=== PATIENT | female | born 1930 | race Caucasian/White ===

== ENCOUNTER 2016-11-21 08:03 | Emergency (ER) | payer BC ==
[~2016-11-21] VITALS: Ht 161.3 cm; Wt 70.8 kg
[~2016-11-21 08:03] MED LIST: CALC-51 PO; CHOL1CAP57 PO; MULT-730 PO
[2016-11-21 08:08] VITALS: TEMP 36.3; Ht 161.3 cm; Wt 70.8 kg
--- NOTE | 2016-11-21 08:37 | EMERGENCY ROOM VISIT NOTE ---
History Report prepared by Fabricio: Jesus Sosa Under the Supervision of: Dr. Yahaira Peter M.D. First contact with patient: 08:24 Chief Complaint: NECK PAIN Stated Complaint: BASE OF SKULL, DOWN NECK AND INTO SHOULDER History of Present Illness The patient is an 86 year old female who presents to the Emergency Room with complaints of persistent left-sided facial pain that started at midnight. The patient was feeling fine yesterday and woke up with the pain. The pain radiates down her neck and is worse when she rotates her head. She tried using Bengay and taking Tylenol. The patient was eventually able to fall back asleep but the pain persisted this morning. The pain is rated 10/10 in severity. She denies any history of diabetes. The patient lives alone. Source of History: patient Onset: midnight Position: other (left face) Symptom Intensity: 10/10 Timing: other (persistent) Modifying Factors (Worsening): movement Review of Systems See HPI for pertinent positives & negatives. A total of 10 systems reviewed and were otherwise negative. Past Medical & Surgical Medical Problems: (1) Breast nodule (2) Cataract Family History No pertinent family history Social History Smoking Status: Never Smoker Drug Use: none Occupation Status: retired Current/Historical Medications Scheduled Calcium Carbonate-Vitamin D (Calcium), 1 TAB PO DAILY Calcium Carbonate-Vitamin D (Calcium), 1 TAB PO 2XWK Cholecalciferol (Vitamin D3), 1,000 MG PO DAILY Multiple Vitamins W/ Minerals (Alive Womens 50+), 1 TAB PO DAILY Scheduled PRN Metaxalone (Skelaxin), 1 TAB PO TID PRN for spasms Tramadol (Ultram), 1 TABS PO Q6 PRN for Pain Allergies Coded Allergies: Penicillins (Verified Allergy, Mild, RASH, 11/21/16) Aspirin (Verified Allergy, Unknown, ., 11/21/16) Physical Exam Vital Signs Date Time Temp Pulse Resp B/P Pulse Ox O2 Delivery O2 Flow Rate FiO2 11/21/16 10:04 81 16 183/82 98 11/21/16 08:08 36.3 81 18 163/85 97 Room Air Physical Exam Vital signs reviewed. General: Well-appearing female, in no significant distress. HEENT: No scleral icterus, PERRLA, neck supple. Atraumatic. Cardiovascular: Regular rate and rhythm, no extra sounds. Pulmonary: Clear to auscultation bilaterally, normal work of breathing. Abdomen: Soft, nontender, nondistended, positive bowel sounds. Musculoskeletal: Atraumatic, no peripheral edema. Tenderness along the left cervical paraspinous muscles with palpable spasm, limited range of motion secondary to discomfort. No meningeal signs. Neurologic: Patient awake alert and oriented x 3, full strength in all 4 extremities. Cranial nerves 2 through 12 grossly intact. Ambulatory without difficulty. Skin: Warm, dry, no rash Medical Decision & Procedures ER Provider Diagnostic Interpretation: X-ray results as stated below per interpretation by me and the radiologist: C-SPINE ROUTINE 4 OR 5 VIEWS CLINICAL HISTORY: Neck pain COMPARISON STUDY: MRI dated 06/01/2010 FINDINGS: There are moderate multilevel degenerative changes with multilevel disc space narrowing. There is multilevel uncovertebral joint spurring with mild multilevel foraminal encroachment. No acute fractures or traumatic subluxations are visualized. The prevertebral soft tissues appear normal. IMPRESSION: Moderate multilevel degenerative change. No fractures, subluxations, or destructive lesions are visualized Electronically signed by: Delfin Jeffrey M.D. 11/21/2016 9:22 AM Dictated Date/Time: 11/21/2016 9:21 AM Medications Administered Medications (Trade) Dose Ordered Sig/Snow Route Start Time Stop Time Status Last Admin Dose Admin Prednisone (PredniSONE TAB) 40 mg NOW STAT PO 11/21/16 08:31 11/21/16 08:37 DC 11/21/16 09:51 40 MG ECG Indication: other Rate (beats per minute): 7272 Rhythm: normal sinus Findings: no acute ischemic change, left axis deviation, no ectopy, other ( left atrial enlargement) ED Course 0830: Past medical records reviewed. The patient was evaluated in room B4b. A complete history and physical examination was performed. 0831: Prednisone 40 mg PO. 1030: Reassessed the patient. Discussed the findings with her. She verbalized understanding and agreement of the treatment plan. The patient is ready for discharge. Medical Decision Differential diagnosis includes muscular strain, DDD, bony fracture, infectious etiology. This patient was evaluated and appeared to be in no significant distress. Physical examination is consistent with a left cervical torticollis. X-rays were obtained and are read as above. Patient was given prednisone 40 mg orally. She states she has an aspirin allergy, although this is unclear. The patient was given a prescription for Skelaxin 800 mg 3 times a day as needed, Ultram 50 mg every 6 hours as needed and will use Tylenol for pain otherwise. She will use warm compresses and gentle stretching for relief of her discomfort. The patient was asked to follow-up with her primary care physician this week for reevaluation of her neck discomfort and her blood pressure. She will return to the ER for worsening of symptoms or any medical concerns. Impression Primary Impression: Torticollis, acute Scribe Attestation The scribe's documentation has been prepared under my direction and personally reviewed by me in its entirety. I confirm that the note above accurately reflects all work, treatment, procedures, and medical decision making performed by me. Departure Information Dispostion Home / Self-Care Prescriptions Tramadol (Ultram) 50 Mg Tab 1 TABS PO Q6 Y for Pain, #20 TAB Prov: Yahaira Peter M.D. 11/21/16 Metaxalone (Skelaxin) 800 Mg Tab 1 TAB PO TID Y for spasms for 10 Days, #30 TAB Prov: Yahaira Peter M.D. 11/21/16 Referrals Shawn Rivas M.D.([facility]) (PCP) Forms HOME CARE DOCUMENTATION FORM, IMPORTANT VISIT INFORMATION, WORK / SCHOOL INSTRUCTIONS Patient Instructions My [facility] Additional Instructions Diagnosis: Torticollis Tylenol 650 mg every 6 hours as needed for pain. Ultram 50 mg every 6 hours as needed for more severe pain. Skelaxin 800 mg three times daily as needed for muscle relaxation. Warm compresses and gentle stretching. Return to emergency for worsening of symptoms or any medical concerns.
--- NOTE | 2016-11-21 09:23 | DIAGNOSTIC IMAGING REPORT ---
C-SPINE ROUTINE 4 OR 5 VIEWS CLINICAL HISTORY: Neck pain COMPARISON STUDY: MRI dated 06/01/2010 FINDINGS: There are moderate multilevel degenerative changes with multilevel disc space narrowing. There is multilevel uncovertebral joint spurring with mild multilevel foraminal encroachment. No acute fractures or traumatic subluxations are visualized. The prevertebral soft tissues appear normal. IMPRESSION: Moderate multilevel degenerative change. No fractures, subluxations, or destructive lesions are visualized Electronically signed by: Delfin Jeffrey M.D. 11/21/2016 9:22 AM Dictated Date/Time: 11/21/2016 9:21 AM
[2016-11-21] MEDS ORDERED: SKL800 PO (09:49)
[2016-11-21] MEDS ORDERED: TRAM-10 PO (09:52)
[2016-11-21 10:04] VITALS: BP 183/82; PULSE 81; O2SAT 98
== END 2016-11-21 10:19 | disposition home or self-care (01) ==
LOC: C.EDB 08:05
DX: M43.6 Torticollis (principal); Z88.0 Allergy status to penicillin; Z88.6 Allergy status to analgesic agent

== ENCOUNTER → 2017-02-03 | Outpatient (CLI) | payer BC ==
[~2017-02-03] MED LIST changes: +TRAM-10 PO
--- NOTE | 2017-02-03 16:12 | MAMMOGRAPHY REPORT ---
BILATERAL DIGITAL SCREENING MAMMOGRAM WITH CAD: 02/03/2017 CLINICAL HISTORY: Routine screening. Patient has no complaints. TECHNIQUE: Current study was also evaluated with a Computer Aided Detection (CAD) system. Bilateral CC and MLO views were obtained. Note that the right MLO view is suboptimal due to difficulties with patient positioning due to a frozen right shoulder, with pectoralis muscle not visualized on the MLO view. COMPARISON: Comparison is made to exams dated: 02/02/2016 mammogram, 01/28/2015 mammogram, 01/22/2014 hilary mogram, 12/20/2012 mammogram, 11/30/2011 mammogram, and 11/25/2010 mammogram - [facility] BREAST COMPOSITION: The tissue of both breasts is heterogeneously dense, which may obscure small mas ses. FINDINGS: No suspicious masses, calcifications, or areas of architectural distortion are noted in ei ther breast. There has been no significant interval change compared to prior exams. Scattered bilater al benign-appearing calcifications are not significantly changed. IMPRESSION: ACR BI-RADS CATEGORY 2: BENIGN There is no mammographic evidence of malignancy. A 1 year screening mammogram is recommended. The pa tient will receive written notification of the results. Approximately 10% of breast cancers are not detected with mammography. A negative mammographic report should not delay biopsy if a clinically suggestive mass is present. Nini Liang M.D. /:02/03/2017 14:55:59 Inspecting Machine Adjuster: Fadia OLEARY(Spring)(Abhay), [facility] letter sent: Normal 1/2 BI-RADS Code: ACR BI-RADS Category 2: Benign
== END | disposition home or self-care (01) ==
LOC: C.MAMM 11:54
PROVIDERS: ATTEND Family Medicine
DX: Z12.31 Encounter for screening mammogram for malignant neoplasm of breast (principal)